=== PATIENT | female | born 1975 | race Hispanic/Latino ===

== ENCOUNTER 2017-11-19 00:36 | Emergency (ER) | payer OTHER ==
[~2017-11-19] VITALS: Ht 160 cm; Wt 65.1 kg
[~2017-11-19 00:36] MED LIST: ALPRAZOLAM0.25 M2 PO; AMBIEN5 M1 PO; CELEXA; CELEXA40 MG PO; CIPRO500 MG PO; CITALOPRAM HBR40 MG PO; EFFEXOR25 MG PO; FLEXERIL10 MG PO; HYDROCODON-ACE1 EAC7 PO; MOTRIN600 MG PO; NAPROSYN500 MG PO; NOHOMEMEDS; NORCO 5/3251 TABLET PO; OXYCODONE HCL5 MG PO; SLEEP AID; SLEEP AID50 MG PO; SUDAFED30 MG PO; TRAZODONE HCL50 MG PO; TYLENOL REGULA325 MG PO; TYLENOL WITH C1 EACH PO; VITAMIN D1000 INTUN PO; VITAMIN D31000 UNIT PO; XANAX; XANAX0.25 MG PO
[2017-11-19] MEDS ORDERED: KEFLEX500 MG PO (02:34)
[2017-11-19 02:37] VITALS: BP 110/72
== END 2017-11-19 02:39 | disposition home or self-care (01) ==
LOC: EXP 00:36 → EME 00:36 → EXP 02:39
PROC: 0HQNXZZ Repair Left Foot Skin, External Approach (ICD-10-PCS; principal; 2017-11-19)
PROC: 3E0234Z Introduction of Serum, Toxoid and Vaccine into Muscle, Percutaneous Approach (ICD-10-PCS; principal; 2017-11-19)
DX: S91.312A Laceration without foreign body, left foot, initial encounter (principal); S90.32XA Contusion of left foot, initial encounter; W11.XXXA Fall on and from ladder, initial encounter; Z23 Encounter for immunization; F32.9 Major depressive disorder, single episode, unspecified; F41.9 Anxiety disorder, unspecified; Z85.41 Personal history of malignant neoplasm of cervix uteri
CPT/HCPCS: 99281; 99284